=== PATIENT | female | born 1955 | race Caucasian/White ===

== ENCOUNTER → 2017-04-06 | Outpatient (CLI) | payer BC ==
[~2017-04-06] MED LIST: ACET-2321 PO; AMOX-351 PO; ASPI-917 PO; CALC1TAB3 PO; CELE200C PO; CHOL200024 PO; ESTR0.5T PO; EZET1TAB PO; EZET1TAB3 PO; FERR324T8 PO; FLUT9.9S EA NOSTRIL; GABA600T PO; INDA2.5T5 PO; LANS15CA9 PO; LOSA100T2 PO; METF500T4 PO; MOME15CR TP; PARO20TA43 PO; POTA20TA69 PO; TRAM50TA53 PO
--- NOTE | 2017-04-06 12:13 | DI ---
LOCATION OF DICTATION: [facility] EXAM: CHEST, PA LATERAL HISTORY: ITS.REASON: R06.02 Shortness of breath COMPARISON: No prior studies available for comparison. FINDINGS: The heart size is normal. The mediastinal configuration is unremarkable. There are no consolidating opacities or pleural effusions. There is no evidence for a pneumothorax. Moderate rotoscoliosis. Impression: 1. No acute cardiopulmonary abnormalities. .
== END ==
LOC: IMA 09:36
PROVIDERS: ATTEND Internal Medicine Cardiovascular Disease
DX: R06.02 Shortness of breath (principal)